=== PATIENT | male | born 1955 | race Two or more races ===

== ENCOUNTER 2020-06-11 23:12 | Inpatient (IN) | payer OTHER, MEDICAID ==
[~2020-06-11] VITALS: Ht 167.6 cm; Wt 89.6 kg
[2020-06-11] MEDS ORDERED: AMLO5TAB4 PO (23:24)
[2020-06-11] MEDS ORDERED: ATOR20TA37 PO (23:24)
[2020-06-11] MEDS ORDERED: LISPRO (23:24)
[2020-06-11] MEDS ORDERED: METF500T17 PO (23:24)
[2020-06-11] MEDS ORDERED: INSU100V8 SQ (23:24)
[2020-06-11] MEDS ORDERED: VICTOZA 0.6 MG (23:24)
--- NOTE | 2020-06-11 23:29 | NUR ---
Pt transported from [place] as no beds available there, intoxicated diabetic gentleman had episode at home in front of family of vomiting on self and became altered at home while drinking beer, found to be hypoxic and required o2 5l nc, here on room air pt is 82%, pt is 93-94% 3l at this time, NSR monitor without ectopy, pt found to have ETOH level of .32 and K of 2.9, no replacement done there.
[2020-06-11] MEDS ORDERED: POTASSIUM CHLORIDE 20 MEQ TAB.ER.PRT PO ONE (23:30)
[2020-06-12] MEDS ORDERED: AZITHROMYCIN 500 MG in SODIUM CHLORIDE 0.9% 250 ML IV ONE
[2020-06-12] MEDS ORDERED: CEFTRIAXONE PMX 1GM/50ML 50 ML IV ONE
--- NOTE | 2020-06-12 00:24 | NUR ---
Break RN: Attending PA at bedside.
[2020-06-12] MEDS ORDERED: POTASSIUM CHLORIDE 20 MEQ TAB.ER.PRT ONE (00:26)
[2020-06-12] MEDS ORDERED: CEFTRIAXONE PMX 1GM/50ML 50 ML ONE (00:26)
--- NOTE | 2020-06-12 00:45 | NUR ---
Bed assigned. report to JOHANN Doty.
[2020-06-12] MEDS: ENOXAPARIN 40 MG/0.4 ML SQ SCH (01:00)
[2020-06-12] MEDS: INSULIN GLARGINE 100 UNITS/ML, PEN SQ-INSULIN SCH ×2 (01:00→20:29)
[2020-06-12] MEDS ORDERED: LIDODERM 5% PATCH TD PRN (01:00)
[2020-06-12] MEDS ORDERED: MELATONIN 5 MG TABLET PO PRN (01:00)
[2020-06-12] MEDS ORDERED: ONDANSETRON 2MG/ML, 2ML IVPush PRN (01:00)
[2020-06-12] MEDS ORDERED: DOCUSATE 100 MG CAPSULE PO PRN (01:00)
[2020-06-12 02:00] VITALS: BP 133/68
[2020-06-12 06:24] LABS: BASOPHILS # (AUTO) 0.03 x10^3/uL (0-0.1); BASOPHILS % (AUTO) 0 % (0-1); EOSINOPHILS % (AUTO) 0 % (1-7); LYMPHOCYTES # (AUTO) 1.48 x10^3/uL (1-3.4); LYMPHOCYTES % (AUTO) 11 % (22-44); MD NO; MEAN CORPUSCULAR HGB CONC 33.5 g/dL (33.2-36.2); MEAN CORPUSCULAR VOLUME 89.5 fL (81-97); MEAN PLATELET VOLUME 7.6 fL (7.4-10.4); MONOCYTES # (AUTO) 1.09 x10^3/uL (0.2-0.8); MONOCYTES % (AUTO) 8 % (2-9); NEUTROPHILS # (AUTO) 10.88 x10^3/uL (1.8-6.8); NEUTROPHILS % (AUTO) 81 % (42-75); PLATELET COUNT 312 x10^3/uL (130-400); RED BLOOD COUNT 4.37 x10^6/uL (4.38-5.82); RED CELL DISTRIBUTION WIDTH 13.4 % (9.4-14.8)
[2020-06-12 06:34] LABS: ANION GAP 10 mmol/L (5-15); CALCIUM 8.2 mg/dL (8.5-10.1); CHLORIDE 107 mmol/L (98-107); CREATININE 0.91 mg/dL (0.7-1.3)
[2020-06-12] MEDS: INSULIN LISPRO 100 UNITS/ML, PEN SQ-INSULIN SCH ×4 (07:00→20:29)
[2020-06-12 07:54] VITALS: BP 122/73
[2020-06-12] MEDS: AMLODIPINE 5 MG TABLET PO SCH (09:22)
[2020-06-12] MEDS: AMPICILLIN/SULBACTAM 1,500 MG in SODIUM CHLORIDE 0.9% 50 ML IV SCH ×3 (11:06→21:38)
[2020-06-12] MEDS: MULTIVITAMINS/MINERALS TABLET PO SCH (11:06)
[2020-06-12] MEDS: FOLIC ACID 1 MG TABLET PO SCH (11:07)
[2020-06-12] MEDS: THIAMINE 100MG TABLET PO SCH ×2 (11:07→20:28)
[2020-06-12 13:39] VITALS: BP 136/70
[2020-06-12 19:50] VITALS: BP 143/77
[2020-06-12] MEDS ORDERED: ATORVASTATIN 20 MG TABLET PO SCH (21:00)
[2020-06-12 21:01] LABS: AMPHETAMINE SCREEN, URINE Negative (Negative); BARBITURATE SCREEN, URINE Negative (Negative); BENZODIAZEPINE SCREEN, URINE Negative (Negative); CANNABINOID SCREEN, URINE Negative (Negative); COCAINE SCREEN, URINE Negative (Negative); METHADONE SCREEN, URINE Negative (Negative); OPIATE SCREEN, URINE Negative (Negative)
[2020-06-12] MEDS ORDERED: CEFTRIAXONE PMX 1GM/50ML 50 ML IV SCH (23:00)
[2020-06-12] MEDS ORDERED: AZITHROMYCIN 500 MG in SODIUM CHLORIDE 0.9% 250 ML IV SCH (23:00)
[2020-06-13] MEDS: ENOXAPARIN 40 MG/0.4 ML SQ SCH (01:00)
[2020-06-13 01:27] VITALS: BP 136/73
[2020-06-13 04:03] LABS: BASOPHILS # (AUTO) 0.07 x10^3/uL (0-0.1); BASOPHILS % (AUTO) 1 % (0-1); EOSINOPHILS # (AUTO) 0.02 x10^3/uL (0-0.4); EOSINOPHILS % (AUTO) 0 % (1-7); LYMPHOCYTES % (AUTO) 19 % (22-44); MD NO; MEAN CORPUSCULAR HEMOGLOBIN 30.2 pg (27.5-34.5); MEAN CORPUSCULAR HGB CONC 33.7 g/dL (33.2-36.2); MEAN CORPUSCULAR VOLUME 89.5 fL (81-97); MEAN PLATELET VOLUME 7.7 fL (7.4-10.4); MONOCYTES # (AUTO) 0.98 x10^3/uL (0.2-0.8); MONOCYTES % (AUTO) 10 % (2-9); NEUTROPHILS # (AUTO) 7.11 x10^3/uL (1.8-6.8); NEUTROPHILS % (AUTO) 71 % (42-75); PLATELET COUNT 312 x10^3/uL (130-400); RED BLOOD COUNT 4.47 x10^6/uL (4.38-5.82); RED CELL DISTRIBUTION WIDTH 13.2 % (9.4-14.8)
[2020-06-13] MEDS: AMPICILLIN/SULBACTAM 1,500 MG in SODIUM CHLORIDE 0.9% 50 ML IV SCH (04:05)
[2020-06-13 04:19] LABS: CHLORIDE 106 mmol/L (98-107)
[2020-06-13 04:28] LABS: ALANINE AMINOTRANSFERASE 23 U/L (12-78); ALBUMIN 3.1 g/dL (3.4-5.0); ALKALINE PHOSPHATASE 64 U/L (45-117); ANION GAP 7 mmol/L (5-15); BILIRUBIN,TOTAL 0.9 mg/dL (0.2-1.0); CALCIUM 8.7 mg/dL (8.5-10.1); CREATININE 0.85 mg/dL (0.7-1.3); TOTAL PROTEIN 7.1 g/dL (6.4-8.2)
[2020-06-13 07:12] VITALS: BP 136/76
[2020-06-13] MEDS: INSULIN LISPRO 100 UNITS/ML, PEN SQ-INSULIN SCH ×2 (08:54→11:00)
[2020-06-13] MEDS: MULTIVITAMINS/MINERALS TABLET PO SCH (08:55)
[2020-06-13] MEDS: AMLODIPINE 5 MG TABLET PO SCH (08:55)
[2020-06-13] MEDS: THIAMINE 100MG TABLET PO SCH (08:55)
[2020-06-13] MEDS: FOLIC ACID 1 MG TABLET PO SCH (08:55)
[2020-06-13] MEDS ORDERED: AMOXICILLIN/CLAV 875-125MG TABLET PO SCH (09:30)
[2020-06-13] MEDS ORDERED: POTASSIUM CHLORIDE 20 MEQ TAB.ER.PRT PO SCH (09:30)
[2020-06-13] MEDS ORDERED: metFORMIN 500 MG TABLET PO SCH (09:30)
[2020-06-13] MEDS ORDERED: FOLI-17 PO (10:59)
[2020-06-13] MEDS ORDERED: AMOX1TAB12 PO (10:59)
[2020-06-13] MEDS ORDERED: THIA100T67 PO (10:59)
== END 2020-06-13 12:44 | disposition home or self-care (01) | DRG 177 ==
LOC: ED 23:42 → EDIP 06-12 01:16 → 4WST 06-12 01:20 → DCLOUNGE 06-13 12:36
PROVIDERS: ADMIT Hospitalist; ATTEND Internal Medicine
DX: J69.0 Pneumonitis due to inhalation of food and vomit (principal); G92 Toxic encephalopathy; J96.01 Acute respiratory failure with hypoxia; E87.1 Hypo-osmolality and hyponatremia; E11.9 Type 2 diabetes mellitus without complications; E66.9 Obesity, unspecified; E87.6 Hypokalemia; F10.129 Alcohol abuse with intoxication, unspecified; I10 Essential (primary) hypertension; Z83.3 Family history of diabetes mellitus; Z79.899 Other long term (current) drug therapy; Z79.84 Long term (current) use of oral hypoglycemic drugs; Z79.4 Long term (current) use of insulin
CPT/HCPCS: 36415; 71045; 80048; 80053; 80307; 82962; 83735; 85025; 85379; 87040; 93306; 96365; 96367; 99285; G0378; J0456; J0696; J1650; J0295; J1815; J7050